=== PATIENT | male | born 1995 | race Caucasian/White ===

== ENCOUNTER 2019-08-20 22:27 | Emergency (ER) | payer MEDICAID ==
[~2019-08-20] VITALS: Ht 175.3 cm; Wt 74.4 kg
[2019-08-20 22:32] VITALS: BP 136/78
--- NOTE | 2019-08-20 22:39 | NUR ---
PT AMBULATED TO LOBBY TO A/W BED.
--- NOTE | 2019-08-21 00:09 | NUR ---
PT AMBULATED TO BED 03.
--- NOTE | 2019-08-21 00:20 | NUR ---
24 YEAR OLD MALE COMPLAINS OF ABSCESS IN LEFT ARMPIT THAT HAS BEEN GETTING PROGRESSIVELY BIGGER X 1 WEEK. ABSCESS VISIBLE WITH SWELLING AND REDNESS. PATIENT STATES PAIN 4/10. PATIENT ALERT AND ORIENTED, BREATHING EVEN AND UNLABORED, SKIN WARM AND DRY. BED IN LOWEST POSITION, LOCKED, BED RAIL UPX1. PMH - NONE MEDICATIONS - NONE ALLERGIES - NKA
--- NOTE | 2019-08-21 00:27 | NUR ---
PATIENT ALERT AND ORIENTED, BREATHING EVEN AND UNLABORED
--- NOTE | 2019-08-21 00:53 | NUR ---
DR ENRIQUEZ AT BEDSIDE FOR ABSCESS
[2019-08-21] MEDS: LIDOCAINE MPF 1% 10 MG/ML VIAL INJ ONE (00:54)
--- NOTE | 2019-08-21 01:08 | NUR ---
PLACED ADHESIVE DRESSING 4X4 ONTO SITE AFTER DR ENRIQUEZ DRAINED ABSCESS, PT UNDERSTANDS TO CHANGE DRESSING WHEN SATURATED OR DAILY
[2019-08-21 01:25] VITALS: BP 130/78
--- NOTE | 2019-08-21 01:25 | NUR ---
Patient discharged with v/s stable. Written and verbal after care instructions ABOUT ABSCESS CARE given and explained. Patient alert, oriented and verbalized understanding of instructions. Ambulatory with steady gait. All questions addressed prior to discharge. ID band removed. Patient advised to follow up with PMD. Rx of IBUPROFEN, KEFLEX, BACTRIM given. Patient educated on indication of medication including possible reaction and side effects. Opportunity to ask questions provided and answered.
== END 2019-08-21 01:25 | disposition home or self-care (01) ==
LOC: MED 22:27
DX: L02.414 Cutaneous abscess of left upper limb (principal)
CPT/HCPCS: 10060; 99283; J2001

== ENCOUNTER 2023-03-08 18:49 | Emergency (ER) | payer MEDICAID, OTHER ==
[~2023-03-08] VITALS: Ht 175.3 cm; Wt 84.4 kg
[2023-03-08 19:01] VITALS: BP 137/73; PULSE 68; RESP 20; TEMP 99.9; O2SAT 96
[2023-03-08] MEDS ORDERED: IBUPROFEN 600 MG TAB PO ONE (19:55)
--- NOTE | 2023-03-08 20:18 | NUR ---
PT PUT IN BED 7
--- NOTE | 2023-03-08 20:23 | NUR ---
PT TAKEN TO RADIOLOGY
--- NOTE | 2023-03-08 20:38 | NUR ---
PT RETURN FROM XRAY
[2023-03-08] MEDS ORDERED: AMOX-999 PO (20:55)
[2023-03-08] MEDS ORDERED: IBUP-1842 PO (20:55)
[2023-03-08] MEDS ORDERED: ACET-10509 PO (20:55)
--- NOTE | 2023-03-08 20:58 | NUR ---
PT DENIES NEED FOR ANIMAL BITE REPORT.
[2023-03-08 21:04] VITALS: BP 120/72; RESP 16; TEMP 98.4; O2SAT 99
--- NOTE | 2023-03-08 21:06 | NUR ---
Patient discharged with v/s stable. Written and verbal after care instructions given and explained. Patient verbalized understanding. Ambulatory with steady gait. All questions addressed prior to discharge. Advised to follow up with PMD.
== END 2023-03-08 21:06 | disposition home or self-care (01) ==
LOC: MED 18:49
DX: S61.452A Open bite of left hand, initial encounter (principal); Z79.899 Other long term (current) drug therapy; W54.0XXA Bitten by dog, initial encounter; Y93.89 Activity, other specified; Y92.89 Other specified places as the place of occurrence of the external cause; Y99.8 Other external cause status
CPT/HCPCS: 73130; 99283